=== PATIENT | female | born 1935 | race Caucasian/White ===

== ENCOUNTER 2017-04-10 10:47 | Emergency (ER) | payer MEDICARE ==
[~2017-04-10] VITALS: Ht 152.4 cm; Wt 72.7 kg
[~2017-04-10 10:47] MED LIST: AMLO5TAB2 PO; ATEN100T PO; CITA20TA PO; COLC0.6T52 PO; FURO40TA4 PO; HYDR-4003 PO; INSU100I13 SUBQ; LEVO75TA4 PO; POTA99TA7 PO; SIMV40TA5 PO; WARF5TAB7 PO
[2017-04-10 10:52] VITALS: PULSE 65; RESP 18; O2SAT 94
--- NOTE | 2017-04-10 11:40 | ED.REPORT ---
HPI-Trauma Minor / Fall Date of Service Apr 10, 2017 ED Provider: Kathy Gonzales History of Present Illness: fell on 03/28/2017 at [facility]. fall from standing position landing on back on carpet. helped to standing position by by stander. pain started immediately after standing. pain in left hip and lower back and left arm. [facility]. 8/10 with tylenol goes to a 5/10 lives by self on 2nd floor senior apartment. Thought the pain would go away. Has been ambulating Nursing Notes Stated Complaint: POST FALL TAILBONE PAIN Chief Complaint: Multiple Trauma/Fall Nursing Notes Reviewed: Yes Allergies: Coded Allergies: Sulfa (Sulfonamide Antibiotics) (Verified Allergy, Unknown, 04/10/17) Scheduled Amlodipine (Amlodipine) 5 Mg Tablet 5 MG PO DAILY Atenolol (Atenolol) 100 Mg Tablet 100 MG PO DAILY Citalopram Hydrobromide (Celexa) 20 Mg Tablet 20 MG PO DAILY Furosemide (Furosemide) 40 Mg Tablet 40 MG PO DAILY Insulin Glargine (Lantus U100 Solostar Insulin Pen) 100 Unit/1 Ml Insuln.pen 28 UNIT SUBQ AM Levothyroxine (Levothyroxine) 75 Mcg Tablet 75 MCG PO DAILY Simvastatin (Simvastatin) 40 Mg Tablet 20 MG PO HS Warfarin Sodium (Warfarin Sodium) 5 Mg Tablet 5 MG PO DAILY Scheduled PRN Colchicine (Colcrys) 0.6 Mg Tablet 0.6 MG PO BID PRN PRN For Pain Hydrocodone-Acetaminophen 5-325 mg (Hydrocodone-Acetaminophen 5-325 mg) 1 Each Tablet 1 EACH PO DAILY PRN PRN For Pain Miscellaneous Medications Potassium (Potassium) 99 Mg Tablet 8 MEQ PO General Time Seen by MD: 11:39 Chief Complaint Fall Hx Obtained From: Patient Onset Occurred: More than a week ago... (2 weeks) Symptom Duration: Since onset Caused by: Fall from height... (standing) Location: Back Elbow left Leg left Severity: Current: Pain level 5 out of 10 Past Medical History Past Medical History Negative cardiac stress test 08/04/2014 Echocardiogram 08/03/2014 EF of 65-70% no focal wall motion or valvular abnormalities Gout Sleep apnea Hiatal hernia Reports: Congestive heart failure, Diabetes mellitus, GERD, Hyperlipidemia, Hypertension Past Surgical History Ventricular pacer Reports: Appendectomy, Cataract surgery, Cholecystectomy Reports: Pacemaker insertion Family History Noncontributory Smoking History Never Smoker Social History Alcohol Use: Denies alcohol use Drug Use: Denies drug use Occupation lives by self in a 2nd floor senior apartment 04/10/2017 Ambulatory Status Independent Review of Systems Basic Review of Systems Cardiovascular: No chest pain, No dyspnea on exertion, No orthopnea, No parox noct dyspnea, No palpitations Endocrine: No cold intolerance, No heat intolerance, No weight gain, No weight loss Psychiatric: Normal thought content Physical Exam Initial Vital Signs Vital Signs (First) Date Time Temp Pulse Resp B/P Pulse Ox O2 Delivery O2 Flow Rate FiO2 04/10/17 10:52 36.7 65 18 94 Room Air 04/10/17 11:49 202/90 Initial VS: Reviewed, Vital signs abnormal Head / Eyes: Atraumatic, Normocephalic, PERRL ENT: Mucous membranes moist, Conjunctiva normal, No scleral icterus Respiratory: Breath sounds normal, Clear to auscultation, No respiratory distress Cardiovascular: Regular rate & rhythm, Heart sounds normal, Intact distal pulses Abdomen / GI: Soft, Non-tender, No guarding, No rebound, No distention Back: No CVA tenderness Lymphatic: No lymphadenopathy Extremities: Vascular intact, Neuro intact, No swelling, No tenderness Skin: Warm, Dry, No cyanosis Neurologic: Alert, Oriented, Nonfocal Psychiatric: Mood/affect normal, Behavior normal, Normal thought content General/Constitutional: Awake, Alert, No acute distress, Well appearing, Well developed, Well hydrated, Well nourished, Cooperative, Not toxic appearing Neck: Atraumatic, Supple, No meningismus, Full range of motion ENT: Atraumatic, Airway patent, Mucous membranes moist, Pharynx NL, No peritonsillar abscess Respiratory / Chest: Atraumatic, Breath sounds NL, Breath sounds = bilat, No respiratory distress Cardiovascular: Heart rate NL, Regular rhythm, Heart sounds NL, No gallop Abdomen: Atraumatic, Soft, Non-tender, McBurney's non-tender Left Elbow: Positive: Ecchymosis present patient with full range of motion Wrist / Hand: Atraumatic, Inspection NL, Full range of motion Lower Extremity / Pelvis / MS: Atraumatic, Inspection NL, Full range of motion , No swelling Ankle / Foot: Atraumatic, Inspection NL, Full range of motion, No swelling Interpretation & Diagnostics Lab Results Interpretation Result Diagram: 04/10/17 1200 04/10/17 1200 Test 04/10/17 12:00 White Blood Count 7.6th/mm3 (3.8-10.1) Red Blood Count 4.63mil/mm3 (3.90-5.20) Hemoglobin 12.9g/dL (12.0-15.6) Hematocrit 41.0% (35.0-46.0) Mean Corpuscular Volume 88.6fL (81-100) Mean Corpuscular Hemoglobin 27.9pg (27.0-35.0) Mean Corpuscular Hemoglobin Concent 31.5% (32.0-37.0) Red Cell Distribution Width 14.9% (12.3-15.4) Platelet Count 283bil/L (150-400) Neutrophils (%) (Auto) 72.6% (40-74) Lymphocytes (%) (Auto) 16.3% (14-46) Monocytes (%) (Auto) 7.9% (4-12) Eosinophils (%) (Auto) 2.4% (0-5) Basophils (%) (Auto) 0.5% (0-3) Prothrombin Time 26.5sec (8.1-12.5) Prothromb Time International Ratio 2.43ratio Sodium Level 143mEq/L (134-144) Potassium Level 5.0mEq/L (3.5-5.2) Chloride Level 103mEq/L (97-108) Carbon Dioxide Level 27mmol/L (18-29) Blood Urea Nitrogen 36mg/dL (8-27) Creatinine 1.34mg/dL (0.57-1.00) Estimat Glomerular Filtration Rate 54mL/min (>59) Glucose Level 157mg/dL (60-99) Lactic Acid Level 0.8mmol/L (0.4-2.0) Calcium Level 9.1mg/dL (8.5-10.1) Total Bilirubin 0.3mg/dL (0.0-1.2) Aspartate Amino Transf (AST/SGOT) 13U/L (0-50) Alanine Aminotransferase (ALT/SGPT) 12U/L (0-32) Alkaline Phosphatase 103U/L (25-165) Total Protein 7.2g/dL (6.4-8.4) Albumin 3.7g/dL (3.4-5.0) X-Ray Interpretation Xray Interpretation: PROCEDURE: X-RAY LEFT ELBOW COMPLETE, MINIMUM THREE VIEWS ([id number]) INDICATIONS: fall pain TECHNIQUE: 3 views of the elbow were acquired. COMPARISON: None. FINDINGS: Bones: No fractures or dislocations. No suspicious bony lesions. Soft tissues: No elbow joint effusion. No suspicious soft tissue calcifications. IMPRESSION: No fracture is seen in these 3 views of the left elbow. Dictated by: Dilip Suárez M.D. on 04/10/2017 at 13:33 Approved by: Dilip Suárez M.D. on 04/10/2017 at 13:33 OCEDURE: X-RAY PELVIS W/LAT HIP (LT) ([id number]) INDICATIONS: fall pain TECHNIQUE: AP pelvis with lateral view(s) of the left hip(s). COMPARISON: None. FINDINGS: Bones: No fractures or dislocations. Pelvic ring appears intact. No suspicious bony lesions. Soft tissues: The visualized bowel gas pattern is normal. No suspicious soft tissue calcifications. IMPRESSION: No fracture is seen of the pelvic ring or either hip joint. Dictated by: Dilip Suárez M.D. on 04/10/2017 at 13:35 Approved by: Dilip Suárez M.D. on 04/10/2017 at 13:36 ROCEDURE: X-RAY LEFT HUMERUS, MINIMUM TWO VIEWS ([id number]) INDICATIONS: fall pain TECHNIQUE: 2 views of the humerus were acquired. COMPARISON: None. FINDINGS: Bones: No fractures or dislocations. No suspicious bony lesions. Soft tissues: No suspicious soft tissue calcifications. IMPRESSION: No acute abnormality seen next 2 views of the left humerus from the shoulder to the elbow. No fracture Dictated by: Dilip Suárez M.D. on 04/10/2017 at 13:33 Approved by: Dilip Suárez M.D. on 04/10/2017 at 13:34 PROCEDURE: X-RAY LUMBAR SPINE, 2 OR 3 VIEW INDICATIONS: fall pain TECHNIQUE: 3 views of the lumbar spine were acquired. COMPARISON: None. FINDINGS: Bones: 5 [id number] vertebrae are present. There is a retrolisthesis minimal grade 1 one posteriorly at L2. Alignment in the lateral view is otherwise normal. There is diffuse moderate disc degenerative disease. No vertebral body compression fractures. No suspicious bony lesions. Soft tissues: Overlying bowel gas pattern is normal. No suspicious soft tissue calcifications. IMPRESSION: No acute bony abnormality. Dictated by: Dilip Suárez M.D. on 04/10/2017 at 13:34 Approved by: Dilip Suárez M.D. on 04/10/2017 at 13:35 Re-Eval/Medical Decision Med Decision/Clinical Course 81 year old female presents to the Er after fall on carpet almost 2 weeks ago. Patient has been ambulating but has been haveing ongoing pain. X-rays are negative for any fracture or compression fracture. Ptient with good response to hydrocodone. No sign of compartment syndrome. Patient with elevated blood pressure which normalizes after taking her dose of amlopidine which she states she was due for. Renal insufficency is at baseline. Discharge & Departure Impression: Primary Impression: Fall Encounter type: initial encounter Qualified Code: W19.XXXA - Unspecified fall, initial encounter Additional Impressions: Elbow contusion Renal insufficiency Disposition: Home Patient Instructions: Contusion in Adults (ED), High Fiber Diet (ED) Additional Instructions: Your x-rays are all normal. No sign of any fracture. Your INR is at 2.43. Your labs indicate renal insufficiency, the values are what they have been before, this is not new. Please use 1/2 of a vicodin for pain control up to 2 times a day. Please remember to take your blood pressure medication. Your blood pressure has come down nicely with your medication. Please continue with gentle walking. Follow with primary care later this week. Referrals: Ramon Mcmahan MD (PCP) EDSupervising Provider for APC: Wilber Chairez DO copies to: Ramon Mcmahan MD, Sue ARNP Apr 10, 2017 11:40
[2017-04-10 11:49] VITALS: BP 202/90
[2017-04-10] MEDS ORDERED: HYDROcodone-APAP 5-325 mg Tablet PO ONE (11:55)
[2017-04-10 12:26] LABS: BASOPHILS % (AUTO) 0.5 % (0-3); EOSINOPHILS % (AUTO) 2.4 % (0-5); MONOCYTES % (AUTO) 7.9 % (4-12); Mean Corpuscular Hemoglobin 27.9 pg (27.0-35.0); Mean Corpuscular Volume 88.6 fL (81-100); NEUTROPHILS % (AUTO) 72.6 % (40-74); Platelet Count 283 bil/L (150-400)
[2017-04-10 12:35] LABS: INR 2.43 ratio
--- NOTE | 2017-04-10 13:35 | DRSVH ---
PROCEDURE: X-RAY LEFT ELBOW COMPLETE, MINIMUM THREE VIEWS ([id number]) INDICATIONS: fall pain TECHNIQUE: 3 views of the elbow were acquired. COMPARISON: None. FINDINGS: Bones: No fractures or dislocations. No suspicious bony lesions. Soft tissues: No elbow joint effusion. No suspicious soft tissue calcifications. IMPRESSION: No fracture is seen in these 3 views of the left elbow. Dictated by: Dilip Suárez M.D. on 04/10/2017 at 13:33 Approved by: Dilip Suárez M.D. on 04/10/2017 at 13:33
--- NOTE | 2017-04-10 13:36 | DRSVH ---
PROCEDURE: X-RAY LEFT HUMERUS, MINIMUM TWO VIEWS ([id number]) INDICATIONS: fall pain TECHNIQUE: 2 views of the humerus were acquired. COMPARISON: None. FINDINGS: Bones: No fractures or dislocations. No suspicious bony lesions. Soft tissues: No suspicious soft tissue calcifications. IMPRESSION: No acute abnormality seen next 2 views of the left humerus from the shoulder to the elbow . No fracture Dictated by: Dilip Suárez M.D. on 04/10/2017 at 13:33 Approved by: Dilip Suárez M.D. on 04/10/2017 at 13:34
--- NOTE | 2017-04-10 13:37 | DRSVH ---
PROCEDURE: X-RAY LUMBAR SPINE, 2 OR 3 VIEW INDICATIONS: fall pain TECHNIQUE: 3 views of the lumbar spine were acquired. COMPARISON: None. FINDINGS: Bones: 5 [id number] vertebrae are present. There is a retrolisthesis minimal grade 1 one poste riorly at L2. Alignment in the lateral view is otherwise normal. There is diffuse moderate disc degen erative disease. No vertebral body compression fractures. No suspicious bony lesions. Soft tissues: Overlying bowel gas pattern is normal. No suspicious soft tissue calcifications. IMPRESSION: No acute bony abnormality. Dictated by: Dilip Suárez M.D. on 04/10/2017 at 13:34 Approved by: Dilip Suárez M.D. on 04/10/2017 at 13:35
--- NOTE | 2017-04-10 13:38 | DRSVH ---
PROCEDURE: X-RAY PELVIS W/LAT HIP (LT) ([id number]) INDICATIONS: fall pain TECHNIQUE: AP pelvis with lateral view(s) of the left hip(s). COMPARISON: None. FINDINGS: Bones: No fractures or dislocations. Pelvic ring appears intact. No suspicious bony lesions. Soft tissues: The visualized bowel gas pattern is normal. No suspicious soft tissue calcifications. IMPRESSION: No fracture is seen of the pelvic ring or either hip joint. Dictated by: Dilip Suárez M.D. on 04/10/2017 at 13:35 Approved by: Dilip Suárez M.D. on 04/10/2017 at 13:36
[2017-04-10 13:51] VITALS: BP 155/68; PULSE 65; RESP 12; O2SAT 91
[2017-04-10 14:24] VITALS: BP 155/68; PULSE 65; RESP 12; O2SAT 91
== END 2017-04-10 14:26 | disposition home or self-care (01) ==
LOC: SED 10:47
DX: S50.02XA Contusion of left elbow, initial encounter (principal); M25.552 Pain in left hip; M54.5 Low back pain; M53.3 Sacrococcygeal disorders, not elsewhere classified; N28.9 Disorder of kidney and ureter, unspecified; W51.XXXA Accidental striking against or bumped into by another person, initial encounter; Y93.01 Activity, walking, marching and hiking; Y99.8 Other external cause status; Y92.59 Other trade areas as the place of occurrence of the external cause; I50.9 Heart failure, unspecified; E11.9 Type 2 diabetes mellitus without complications; K21.9 Gastro-esophageal reflux disease without esophagitis; E78.5 Hyperlipidemia, unspecified; I10 Essential (primary) hypertension; Z87.39 Personal history of other diseases of the musculoskeletal system and connective tissue; Z95.0 Presence of cardiac pacemaker; Z79.01 Long term (current) use of anticoagulants; Z88.2 Allergy status to sulfonamides; Z79.4 Long term (current) use of insulin